=== PATIENT | male | born 1960 | race Caucasian/White ===

== ENCOUNTER 2021-04-14 09:21 | Day surgery (SDC) | payer BC ==
[~2021-04-14 09:21] MED LIST: Midazolam 1 MG/ML 2 ML SDV ONE; Propofol 200 MG/20 ML SDV ONE; fentaNYL 100 MCG/2 ML SDV ONE
[2021-04-14] MEDS ORDERED: Sodium Chloride 0.9% 1,000 ML IV SCH (10:00)
[2021-04-14 10:16] LABS: CORONAVIRUS COVID-19 NAA NEGATIVE (NEGATIVE)
[2021-04-14] MEDS ORDERED: Propofol 200 MG/20 ML SDV ONE (10:53)
--- NOTE | 2021-04-14 12:52 | OR ---
DATE OF PROCEDURE: 04/14/2021 SURGEON: Hernandez Jauregui MD PROCEDURE: Colonoscopy. FINDINGS: Normal colonoscopy. COMPLICATIONS: None. CT SCAN TECHNOLOGIST: None. ANESTHESIA: MAC. PREOPERATIVE DIAGNOSIS: Screening colonoscopy. POSTOPERATIVE DIAGNOSIS: Screening colonoscopy. RISKS: Risks, benefits, alternatives, and limitations including, but not limited to infection, bleeding, perforation, false positives and false negatives were explained to the patient who wished to proceed. PROCEDURE IN DETAIL: The patient was placed in left lateral decubitus position. Digital rectal exam was performed without abnormalities. Scope was introduced and advanced atraumatically to the ileocecal valve. A photo was taken. The scope was brought back to the ascending, transverse, descending colon, and retroflexed. No evidence of old or new blood. No masses. No polyps. No colitis. No diverticulosis. No abnormalities on retroflexion. Prep was marginally acceptable, approximately 85% to 90% of the luminal surface could be seen with some solid and liquid stool remaining, possibly precluding polyps up to and including 5 mm in size. Greater than 8 minutes was spent removing the scope. The patient tolerated procedure well. Hernandez Jauregui MD /[id number]
== END 2021-04-14 12:15 | disposition home or self-care (01) ==
LOC: JP.SDS 09:21
PROVIDERS: ATTEND Surgery
DX: Z12.11 Encounter for screening for malignant neoplasm of colon (principal); I10 Essential (primary) hypertension; E78.5 Hyperlipidemia, unspecified; E11.9 Type 2 diabetes mellitus without complications; E66.9 Obesity, unspecified; Z01.812 Encounter for preprocedural laboratory examination; Z20.822 Contact with and (suspected) exposure to COVID-19
CPT/HCPCS: 0241U; 45378; J2250; J2704; J3010; J7030